=== PATIENT | male | born 1995 | race Caucasian/White ===

== ENCOUNTER 2016-09-23 23:21 | Emergency (ER) | payer BC ==
[2016-09-23 23:26] VITALS: BP 114/75
[2016-09-23] MEDS ORDERED: Diphtheria/Tetanus Toxoids,Adult (Td) 0.5 ML Syringe IM ONE (23:50)
[2016-09-23] MEDS ORDERED: Bacitracin/Neomycin/Polymyxin B Oint 0.9 GM U/D Packet TOP ONE (23:55)
--- NOTE | 2016-09-23 23:56 | EDM.PDOC ---
ED HPI GENERAL MEDICAL PROBLEM - General Chief Complaint: Upper Extremity Injury/Pain Stated Complaint: right upper arm injury Time Seen by Provider: 09/23/16 23:45 Source of Information: Reports: Patient History Limitations: Reports: No Limitations - History of Present Illness INITIAL COMMENTS - FREE TEXT/NARRATIVE: Patient was skateboarding this evening and fell onto right elbow. Has tenderness and swelling around elbow, also abrasion. Denies radiating pain. Denies pain in forearm/hand/fingers/shoulder on affected side. Last tetanus was in 2007. Denies any other injuries, including HEENT/neck/chest/abdomen/pelvis/ back and lower extremities. No numbness/tingling or loss of function on affected side. Able to flex and extend injured elbow. Hx ADHD Right Elbow Pain Score (Numeric/FACES): 8 - Related Data Allergies Allergy/AdvReac Type Severity Reaction Status Date / Time No Known Allergies Allergy Verified 09/23/16 23:26 Home Meds: Home Meds Amphetamine Sulfate [Evekeo] 10 mg PO DAILY 09/23/16 [History] Dextroamphetamine/Amphetamine [Adderall Xr 30 mg Capsule] 30 mg PO DAILY [History] Past Medical History Psychiatric History: Reports: ADHD, Anxiety, Depression - Past Surgical History HEENT Surgical History: Reports: Tonsillectomy Social & Family History - Tobacco Use Smoking Status *Q: Never Smoker - Alcohol Use Alcohol Use History: No Alcohol Use Comment: Denies use Review of Systems - Review of Systems Review Of Systems: ROS reveals no pertinent complaints other than HPI. ED EXAM, GENERAL - Physical Exam Exam: See Below Exam Limited By: Uncooperative General Appearance: Alert, No Apparent Distress Eye Exam: Bilateral Eye: EOMI, PERRL Ears: Normal External Exam Nose: Normal Inspection. No: No Blood, Nasal Deformity, Nasal Swelling Throat/Mouth: Normal Inspection, Normal Lips, Normal Voice, No Airway Compromise Head: Atraumatic, Normocephalic Neck: Supple Respiratory/Chest: No Respiratory Distress Peripheral Pulses: 2+: Radial (L), Radial (R) GI/Abdominal: Soft, Non-Tender Back Exam: No: Muscle Spasm, Paraspinal Tenderness, Vertebral Tenderness Extremities: Normal Capillary Refill, Joint Swelling (right elbow has medial hematoma) Neurological: Alert, Oriented, CN II-XII Intact, Normal Cognition, Normal Gait, No Motor/Sensory Deficits Psychiatric: Normal Affect, Normal Mood Skin Exam: Warm, Dry, Other (abrasion of right forearm proximally near elbow) Course - Vital Signs Last Recorded V/S: Last Vital Signs Temp 36.5 C 09/23/16 23:22 Pulse 78 09/23/16 23:22 Resp 20 09/23/16 23:22 BP 114/75 09/23/16 23:22 Pulse Ox 99 09/23/16 23:22 - Orders/Labs/Meds Orders: Active Orders 24 hr Category Date Time Status Communication Order [RC] ROUTINE Care 09/24/16 00:09 Ordered Vaccines to be Administered [RC] PER UNIT ROUTINE Care 09/23/16 23:50 Ordered Elbow Min 3V Rt [CR] Stat Exams 09/23/16 23:30 Taken Meds: Medications Discontinued Medications Generic Name Dose Route Start Last Admin Trade Name Freq PRN Reason Stop Dose Admin Acetaminophen 1,000 mg 09/24/16 00:00 09/24/16 00:07 Tylenol Extra Strength PO 09/24/16 00:01 1,000 mg ONETIME ONE Administration Neomycin/Polymyxin/Bacitracin 1 each 09/23/16 23:55 09/24/16 00:01 Triple Antibiotic Oint TOP 09/23/16 23:56 1 each ONETIME ONE Administration Tetanus/Diphtheria Toxoids 0.5 ml 09/23/16 23:50 09/24/16 00:01 Tenivac IM 09/23/16 23:51 0.5 ml .ONCE ONE Administration - Radiology Interpretation Free Text/Narrative:: Xray did not show obvious fracture of fat pad changes. - Re-Assessments/Exams Free Text/Narrative Re-Assessment/Exam: 09/24/16 00:15 Traumatic hematoma/abrasion/contusion but do not suspect fracture at this time. Tetanus updated. Tylenol given. Sling applied. Wound care discussed. Patient to follow up on Monday at local clinic if no significant improvement is noted over the next 48 hours to be rechecked. Departure - Departure Time of Disposition: 00:10 Disposition: Home, Self-Care 01 Condition: Good Clinical Impression: Contusion of right elbow, initial encounter Qualifiers: Encounter type: initial encounter Qualified Code(s): S50.01XA - Contusion of right elbow, initial encounter Traumatic hematoma of elbow Qualifiers: Encounter type: initial encounter Laterality: right Qualified Code(s): S50.01XA - Contusion of right elbow, initial encounter Abrasion of right elbow, initial encounter Qualifiers: Encounter type: initial encounter Qualified Code(s): S50.311A - Abrasion of right elbow, initial encounter - Discharge Information Instructions: How to Use a Sling, [id number], Abrasion, [id number], Elbow Contusion, [id number] Referrals: PCP,None [Ordering Only Provider] - Forms: ED Department Discharge Additional Instructions: Ibuprofen or Tylenol for pain as needed. Ice for pain/swelling. Follow up for recheck on Monday if no improvement is noted. You may need additional imaging studies as we discussed tonight. There is no obvious bone break however you may have torn ligaments or other soft tissue in that area. Follow up if any signs of infection develop. - My Orders Last 24 Hours: My Active Orders 09/23/16 23:30 Elbow Min 3V Rt [CR] Stat 09/23/16 23:50 Vaccines to be Administered [RC] PER UNIT ROUTINE 09/24/16 00:09 Communication Order [RC] ROUTINE - Assessment/Plan Last 24 Hours: My Active Orders 09/23/16 23:30 Elbow Min 3V Rt [CR] Stat 09/23/16 23:50 Vaccines to be Administered [RC] PER UNIT ROUTINE 09/24/16 00:09 Communication Order [RC] ROUTINE
[2016-09-24] MEDS ORDERED: Acetaminophen 500 MG Tab PO ONE
== END 2016-09-24 00:20 | disposition home or self-care (01) ==
LOC: LL.ED 23:21
DX: S50.01XA Contusion of right elbow, initial encounter (principal); Z79.899 Other long term (current) drug therapy; Z98.890 Other specified postprocedural states; V00.138A Other skateboard accident, initial encounter
CPT/HCPCS: 73080; 90471; 90714; 99283; A9270